=== PATIENT | female | born 1990 ===

== ENCOUNTER 2022-09-21 06:02 | Day surgery (SDC) | payer OTHER | END 2022-09-21 15:25 | disposition home or self-care (01) | LOC: CIR.AMB 06:02 | PROVIDERS: ATTEND Obstetrics & Gynecology | DX: N93.8 Other specified abnormal uterine and vaginal bleeding (principal); N84.0 Polyp of corpus uteri; N72 Inflammatory disease of cervix uteri; Z20.822 Contact with and (suspected) exposure to COVID-19 ==